=== PATIENT | male | born 1955 | race Two or more races ===

== ENCOUNTER 2019-05-06 11:14 | Outpatient (CLI) | payer OTHER | END 2019-05-06 11:15 | disposition home or self-care (01) | LOC: RAD 11:14 | DX: M25.561 Pain in right knee (principal); M25.562 Pain in left knee ==

== ENCOUNTER 2022-08-24 11:27 | Emergency (ER) | payer OTHER ==
[~2022-08-24] VITALS: Ht 167.6 cm; Wt 105.2 kg
[2022-08-24] MEDS ORDERED: SYNTHROID50 MCG (11:38)
[2022-08-24] MEDS ORDERED: TOPROL XL50 M1 PO (11:39)
[2022-08-24] MEDS ORDERED: CRESTOR5 MG PO (11:39)
[2022-08-24] MEDS ORDERED: METFORMIN HCL500 M1 PO (11:39)
[2022-08-24] MEDS ORDERED: NORVASC5 MG PO (11:39)
[2022-08-24] MEDS ORDERED: JARDIANCE25 MG PO (11:40)
[2022-08-24] MEDS ORDERED: HYDRODIURIL12.5 MG PO (11:40)
[2022-08-24] MEDS ORDERED: VAZALORE81 MG PO (11:40)
[2022-08-24] MEDS ORDERED: OZEMPIC0.25 MG/0. SQ (11:41)
== END 2022-08-24 14:33 | disposition home or self-care (01) ==
LOC: ER 11:27
DX: M54.2 Cervicalgia (principal); E11.9 Type 2 diabetes mellitus without complications; E03.9 Hypothyroidism, unspecified; Z79.84 Long term (current) use of oral hypoglycemic drugs; I10 Essential (primary) hypertension